=== PATIENT | male | born 1980 | race African-American/Black ===

== ENCOUNTER 2016-11-25 20:42 | Emergency (ER) | payer OTHER ==
[~2016-11-25] VITALS: Ht 170.2 cm; Wt 73.5 kg
[2016-11-25 20:47] VITALS: TEMP 37; Ht 170.2 cm; Wt 73.5 kg
[2016-11-25 21:25] LABS: BUN/CREATININE RATIO 4.8 (10-20); CALCIUM 8.9 mg/dl (8.5-10.1); CREATININE 1.3 mg/dl (0.60-1.40); POTASSIUM 4.1 mmol/L (3.5-5.1)
--- NOTE | 2016-11-25 23:14 | EMERGENCY ROOM VISIT NOTE ---
History Report prepared by Kunibmary: Maico Douglas Under the Supervision of: Dr. Adrian Gordon D.O. First contact with patient: 21:54 Chief Complaint: ALCOHOL OVERDOSE Stated Complaint: ETOH Nursing Triage Summary: see triage note History of Present Illness The patient is a 36 year old male who presents to the Emergency Room with complaints of a possible sudden alcohol overdose that occurred prior to arrival. He rates his discomfort as a 7/10 in severity. The patient was brought into the ED via EMS. Per EMS the patient was found laying on his side and report he was agitated. They report that they gave him a sternal rub, but report that he became combative. They report that his blood alcohol level is over 200. The patient states that he has a coworker who is supposed to pick him up. The HPI is limited due to the patient's condition. Source of History: patient Onset: prior to arrival Position: other (global) Symptom Intensity: 12/01 Timing: other (sudden) Review of Systems See HPI for pertinent positives & negatives. A total of 10 systems reviewed and were otherwise negative. Past Medical & Surgical Social History Problems: (1) Alcohol abuse Family History Patient reports no known family medical history. Social History Smoking Status: Current Every Day Smoker Alcohol Use: occasionally Marital Status: in relationship Current/Historical Medications No Active Prescriptions or Reported Meds Allergies Coded Allergies: Penicillins (Unverified Allergy, Unknown, ANAPHYLAXIS, 11/25/16) patient states he had the reaction when he was a child. Physical Exam Vital Signs Date Time Temp Pulse Resp B/P (MAP) Pulse Ox O2 Delivery O2 Flow Rate FiO2 11/25/16 22:47 86 18 125/74 93 Room Air 11/25/16 21:02 101 11/25/16 20:50 Room Air 11/25/16 20:47 37.0 103 16 147/102 99 Room Air Physical Exam CONSTITUTIONAL/VITAL SIGNS: Reviewed / noted above. GENERAL: Smell of alcohol on his breath. Slurring his words slightly. Non-toxic in appearance. INTEGUMENTARY: Warm, dry, and [place]. HEAD: Normocephalic. EYES: without scleral icterus or trauma. ENT/OROPHARYNX: clear and moist. LYMPHADENOPATHY/NECK: Is supple without lymphadenopathy or meningismus. RESPIRATORY: Lungs clear and equal. CARDIOVASCULAR: Regular rate and rhythm. GI/ABDOMEN: Soft and nontender. No organomegaly or pulsatile mass. No rebound or guarding. Normal bowel sounds. EXTREMITIES: Warm and well perfused. BACK: No CVA tenderness. NEUROLOGICAL: Intact without focal deficits. PSYCHIATRIC: normal affect. MUSCULOSKELETAL: Normally developed with good muscle tone. Medical Decision & Procedures Laboratory Results 11/25/16 21:00 Test 11/25/16 21:00 Anion Gap 7.0 mmol/L (3-11) Est Creatinine Clear Calc Drug Dose 72.8 ml/min Estimated GFR () 80.8 Estimated GFR (Non- 69.7 BUN/Creatinine Ratio 4.8 (10-20) Calcium Level 8.9 mg/dl (8.5-10.1) Ethyl Alcohol mg/dL 227.0 mg/dl (0-3) Laboratory results as stated above per my review. ED Course 2154: Previous medical records were reviewed. The patient was evaluated in room A02. A complete history and physical examination was performed. 2219: On reevaluation, the patient is resting comfortably. He was able to find a ride home. I discussed the results and findings with the patient. He verbalized agreement of the treatment plan. He was discharged home. Medical Decision There is no evidence of other toxic ingestions, trauma, anemia, hypoglycemia, head injury or intracranial pathology, meningitis, encephalitis, acute intrathoracic or abdominal pathology or other metabolic condition. Medication Reconciliation: I attest that I have personally reviewed the patient' s current medication list. Patient was found to have a slightly elevated blood pressure due to circumstances. I do not believe that the patient requires hypertension monitoring. This is a 36-year-old male who presents to the ED with a chief complaint of a intoxication. The patient was apparently laying on his side and arrives by EMS. He was initially combative. He is brought here for evaluation. The patient has an alcohol level of 227 and 9 PM. His chemistry panel was unremarkable. The patient's exam was relatively normal with exception of some mild slurring of speech. The patient is tender to find a ride. He'll be able to be discharged on his own between 2 and 3 AM. He can be discharged if he has a sober ride prior to that. The patient is cooperative during his ED stay. Impression Primary Impression: Alcohol use with intoxication Scribe Attestation The scribe's documentation has been prepared under my direction and personally reviewed by me in its entirety. I confirm that the note above accurately reflects all work, treatment, procedures, and medical decision making performed by me. Departure Information Dispostion Home / Self-Care Prescriptions No Active Prescriptions or Reported Meds Referrals No Doctor, Assigned (PCP) Forms HOME CARE DOCUMENTATION FORM, IMPORTANT VISIT INFORMATION Patient Instructions My [facility] Additional Instructions Avoid excessive alcohol consumption. Follow-up with your doctor for further care and evaluation in 1-2 days. Return to the emergency department for worsening or new symptoms or any concerns. You have been examined and treated today on an emergency basis only. This is not a substitute for, or an effort to provide, complete comprehensive medical care. It is impossible to recognize and treat all injuries or illnesses in a single emergency department visit. It is therefore important that you follow up closely with your doctor. Call as soon as possible for an appointment.
[2016-11-25 23:30] VITALS: BP 143/98; PULSE 87; O2SAT 93
== END 2016-11-25 23:30 | disposition home or self-care (01) ==
LOC: C.EDA 20:45
DX: F10.129 Alcohol abuse with intoxication, unspecified (principal); Y90.7 Blood alcohol level of 200-239 mg/100 ml